=== PATIENT | male | born 1975 | race African-American/Black ===

== ENCOUNTER 2017-06-29 15:27 | Emergency (ER) | payer OTHER ==
[2017-06-29 15:50] VITALS: BP 179/81; PULSE 83; TEMP 97.9; BMI 29.2
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
[2017-06-29] MEDS ORDERED: KETOROLAC TROMETHAMINE 60 MG/2 ML VIAL IM ONE (16:21)
[2017-06-29] MEDS ORDERED: KETOROLAC TROMETHAMINE 60 MG/2 ML VIAL ONE (16:56)
[2017-06-29] MEDS ORDERED: SODIUM CHLORIDE 1,000 ML IV STA (17:48)
[2017-06-29 18:16] LABS: BASO % 2.3 % (0-2.0); EOS % 2.6 % (0-4.5); HEMATOCRIT 47.1 % (35.4-49); HEMOGLOBIN 16.1 GM/dl (11.7-16.9); LYMPH % 31.6 % (8-40); MCH 30.2 pg (25.7-33.7); MCHC 34.2 g/dl (32.0-35.9); MEAN CELL VOLUME 88.5 fl (80-96); MEAN PLT VOLUME 8.8 fl (7.5-11.1); MONO % 5.3 % (3.8-10.2); NEUT % 58.2 % (42.8-82.8); PLATELET COUNT 193 K/MM3 (134-434); RBC 5.32 M/mm3 (4.00-5.60); RDW 12.2 % (11.9-15.9); WHITE BLOOD COUNT 6.6 K/mm3 (4.0-10.8)
[2017-06-29 18:23] LABS: ALBUMIN 3.8 g/dl (3.5-5.0); ALK PHOS 58 U/L (32-92); ANION GAP 5 (8-16); BILIRUBIN,TOTAL 0.4 mg/dl (0.2-1.0); BLOOD UREA NITROGEN 14 mg/dl (7-18); CALCIUM 8.4 mg/dl (8.4-10.2); CHLORIDE 105 mmol/L (98-107); CO2 28 mmol/L (22-28); CREATININE 1.1 mg/dl (0.6-1.3); GLUCOSE,RANDOM 92 mg/dl (74-106); POTASSIUM 3.9 mmol/L (3.5-5.1); SGOT/AST 20 U/L (10-42); SGPT/ALT 18 U/L (10-40); SODIUM 138 mmol/L (136-145); TOT PROT 6.9 g/dl (6.4-8.3)
--- NOTE | 2017-06-29 19:57 | PDOC ---
*Physical Exam - Vital Signs Last Vital Signs Temp Pulse Resp BP Pulse Ox 97.9 F 83 20 179/81 99 06/29/17 15:28 06/29/17 15:28 06/29/17 15:28 06/29/17 15:28 06/29/17 15:28 ED Treatment Course - LABORATORY CBC & Chemistry Diagram: 06/29/17 18:01 06/29/17 18:01 - ADDITIONAL ORDERS Additional order review: Laboratory Results 06/29/17 18:01 Sodium 138 Potassium 3.9 Chloride 105 Carbon Dioxide 28 Anion Gap 5 L BUN 14 Creatinine 1.1 Creat Clearance w eGFR > 60 Random Glucose 92 Calcium 8.4 Total Bilirubin 0.4 AST 20 ALT 18 Alkaline Phosphatase 58 Total Protein 6.9 Albumin 3.8 06/29/17 18:01 RBC 5.32 MCV 88.5 MCHC 34.2 RDW 12.2 MPV 8.8 Neutrophils % 58.2 Lymphocytes % 31.6 Monocytes % 5.3 Eosinophils % 2.6 Basophils % 2.3 H - Medications Given in the ED: ED Medications Discontinued Medications Generic Name Dose Route Start Last Admin Trade Name Freq PRN Reason Stop Dose Admin Sodium Chloride 1,000 mls @ 1,000 mls/hr 06/29/17 17:48 06/29/17 18:03 Normal Saline - IV 06/29/17 18:47 1,000 mls/hr ASDIR STA Administration Ketorolac Tromethamine 60 mg 06/29/17 16:21 06/29/17 17:04 Toradol Injection - IM 06/29/17 16:22 60 mg ONCE ONE Administration Progress Note - Progress Note Progress Note: Care of this patient was transferred to [place] from Dr. Monge at 1900 hrs. This is a 41-year-old male comes in complaining of acute exacerbation of his back pain and diarrhea. Patient was given Toradol with improvement of his back pain. On exam patient had some mild lower abdominal tenderness so he has a CAT scan of his abdomen pending. Otherwise he had lab work done that included a normal CBC and normal differential, his chemistries were also normal. Will reassess, follow up on CAT scan result 20:00 Reassessment. Patient's back pain is much improved and he has had no further diarrhea here in the emergency room. Patient has expressed that he does not want to stay for the CAT scan as his symptoms are improved. Patient has a normal workup otherwise. Reexamine of the patient's abdomen patient's abdomen is soft it is nontender to palpation diffusely and normal bowel sounds. Discussed with patient the importance of coming back if he develops any fevers, worsening pain or significant change in his symptoms. Patient does not have a primary care doctor so we'll refer him to the clinic. Patient discharged home. *DC/Admit/Observation/Transfer Diagnosis at time of Disposition: Sciatica, right side Diarrhea Qualifiers: Diarrhea type: unspecified type Qualified Code(s): R19.7 - Diarrhea, unspecified - Discharge Dispostion Disposition: HOME Condition at time of disposition: Stable - Prescriptions Prescriptions: Ibuprofen [Motrin -] 600 mg PO TID PRN #21 tablet PRN Reason: Pain Methocarbamol [Robaxin -] 500 mg PO BID #14 tablet - Referrals Referrals: Jez Kong MD [Staff Physician] - - Patient Instructions Printed Discharge Instructions: DI for Back Pain With Sciatica, Diarrhea ( Alternative Therapy), Diarrhea Additional Instructions: For the diarrhea he you can take [id number] Imodium as directed on the bottle. It is important that you follow-up with a primary care Dr. if you need a primary care doctor U can follow-up at the clinic/ Dr. Kong. Follow your discharge instructions you were given earlier for your back pain. Return to the emergency department immediately with ANY new, persistent or worsening symptoms. Continue any medications as previously prescribed by your physician. You should follow up with your primary doctor as soon as possible regarding today's emergency department visit. . Please make sure your doctor reviews the results of your emergency evaluation. Thank you for coming to the Emergency Department today for your care. It was a pleasure to see you today. Please note that your evaluation is INCOMPLETE until you follow-up with your doctor. - Post Discharge Activity
== END 2017-06-29 20:15 | disposition home or self-care (01) ==
LOC: FER 15:27
PROC: 3E0233Z Introduction of Anti-inflammatory into Muscle, Percutaneous Approach (ICD-10-PCS; principal; 2017-06-29)
PROC: 3E0337Z Introduction of Electrolytic and Water Balance Substance into Peripheral Vein, Percutaneous Approach (ICD-10-PCS; 2017-06-29)
DX: M54.31 Sciatica, right side (principal); M51.9 Unspecified thoracic, thoracolumbar and lumbosacral intervertebral disc disorder; Z87.891 Personal history of nicotine dependence
CPT/HCPCS: 36415; 80053; 85025; 96360; 96372; 99284-25